=== PATIENT | male | born 1975 | race Caucasian/White ===

== ENCOUNTER 2017-05-15 23:32 | Emergency (ER) | payer SELFPAY ==
[2017-05-15] MEDS ORDERED: Proparacaine 0.5% Ophth Soln 15 ML Bottle EYELF ONE (23:38)
[2017-05-15] MEDS ORDERED: Diphtheria,Pertussis(Acell),Tetanus Vaccine 0.5 ML Syringe IM ONE (23:58)
--- NOTE | 2017-05-16 00:04 | EDM.PDOC ---
ED HPI GENERAL MEDICAL PROBLEM - General Chief Complaint: Eye Problems Stated Complaint: PT HAS PARTICLE IN LT EYE Time Seen by Provider: 05/15/17 23:58 - History of Present Illness INITIAL COMMENTS - FREE TEXT/NARRATIVE: HISTORY AND PHYSICAL: History of present illness: Patient's 5-year-old male presents with a concern of foreign body to his left eye that occurred approximately 3 hours prior to arrival he thinks this is a metallic foreign body denies other trauma or concern patient denies up-to-date tetanus Review of systems: As per history of present illness and below otherwise all systems reviewed and negative. Past medical history: As per history of present illness and as reviewed below otherwise noncontributory. Surgical history: As per history of present illness and as reviewed below otherwise noncontributory. Social history: No reported history of drug or alcohol abuse. Family history: As per history of present illness and as reviewed below otherwise noncontributory. Physical exam: HEENT: Atraumatic, normocephalic, pupils reactive, negative for conjunctival pallor or scleral icterus, mucous membranes moist, throat clear, neck supple, nontender, trachea midline. Patient has a foreign body noted at the 11 o'clock position in his left eye anterior chamber scleral is no evidence of penetration he was anesthetized with topical anesthetic and the foreign body was removed with a Q-tip there is a suggestion appearance of the might be a small residual component discussed this with patient. Lungs: Clear to auscultation, breath sounds equal bilaterally, chest nontender. Heart: S1S2, regular, negative for clicks, rubs, or JVD. Abdomen: Soft, nondistended, nontender. Negative for masses or hepatosplenomegaly. Negative for costovertebral tenderness. Pelvis: Stable nontender. Genitourinary: Deferred. Rectal: Deferred. Extremities: Atraumatic, negative for cords or calf pain. Neurovascular unremarkable. Neuro: Awake, alert, oriented. Cranial nerves II through XII unremarkable. Cerebellum unremarkable. Motor and sensory unremarkable throughout. Exam nonfocal. Diagnostics: None Therapeutics: Patient was anesthetized with topical anesthesia and foreign body was removed with Q-tip from left eye Impression: #1 corneal foreign body status post removal with possible residual foreign body Definitive disposition and diagnosis as appropriate pending reevaluation and review of above. left eye Pain Score (Numeric/FACES): 7 - Related Data Allergies Allergy/AdvReac Type Severity Reaction Status Date / Time amoxicillin Allergy Hives Verified 05/15/17 23:44 Home Meds: Home Meds . [No Known Home Meds] 05/15/17 [History] Past Medical History - Past Health History Medical/Surgical History: Denies Medical/Surgical History Social & Family History - Family History Family Medical History: Noncontributory - Tobacco Use Smoking Status *Q: Never Smoker - Recreational Drug Use Recreational Drug Use: No ED ROS GENERAL - Review of Systems Review Of Systems: ROS reveals no pertinent complaints other than HPI. ED EXAM GENERAL W FULL EYE - Physical Exam Exam: See Below (See dictation) Course - Vital Signs Text/Narrative:: Case was discussed with ophthalmology will see patient in the morning in the clinic antibiotic ophthalmic drops will be prescribed patient's return as needed as discussed Last Recorded V/S: Last Vital Signs Temp 36.6 C 05/15/17 23:32 Pulse 57 L 05/15/17 23:32 Resp 18 05/15/17 23:32 BP 129/71 05/15/17 23:32 Pulse Ox 96 05/15/17 23:32 - Orders/Labs/Meds Orders: Active Orders 24 hr Category Date Time Status Vaccines to be Administered [RC] PER UNIT ROUTINE Care 05/15/17 23:58 Active Meds: Medications Discontinued Medications Generic Name Dose Route Start Last Admin Trade Name Freq PRN Reason Stop Dose Admin Diphtheria/Tetanus/Acell Pertussis 0.5 ml 05/15/17 23:58 Adacel IM 05/15/17 23:59 .ONCE ONE Proparacaine HCl 1 ml 05/15/17 23:38 05/15/17 23:52 Proparacaine 0.5% Ophth Soln EYELF 05/15/17 23:39 1 ml ONETIME ONE Administration Departure - Departure Time of Disposition: 00:03 Disposition: Home, Self-Care 01 Condition: Good Clinical Impression: Corneal foreign body - Discharge Information Referrals: PCP,None [Primary Care Provider] - Additional Instructions: The following information is given to patients seen in the emergency department who are being discharged to home. This information is to outline your options for follow-up care. We provide all patients seen in our emergency department with a follow-up referral. The need for follow-up, as well as the timing and circumstances, are variable depending upon the specifics of your emergency department visit. If you don't have a primary care physician on staff, we will provide you with a referral. We always advise you to contact your personal physician following an emergency department visit to inform them of the circumstance of the visit and for follow-up with them and/or the need for any referrals to a consulting specialist. The emergency department will also refer you to a specialist when appropriate. This referral assures that you have the opportunity for followup care with a specialist. All of these measure are taken in an effort to provide you with optimal care, which includes your followup. Under all circumstances we always encourage you to contact your private physician who remains a resource for coordinating your care. When calling for followup care, please make the office aware that this follow-up is from your recent emergency room visit. If for any reason you are refused follow-up, please contact the [facility] emergency department at and asked to speak to the emergency department charge nurs Tobrex ophthalmic drops as prescribed follow-up with ophthalmology in a.m. call for appointment return as needed as discussed[] - My Orders Last 24 Hours: My Active Orders 05/15/17 23:58 Vaccines to be Administered [RC] PER UNIT ROUTINE - Assessment/Plan Last 24 Hours: My Active Orders 05/15/17 23:58 Vaccines to be Administered [RC] PER UNIT ROUTINE
== END 2017-05-16 00:21 | disposition home or self-care (01) ==
LOC: MW.ED 23:32
DX: T15.02XA Foreign body in cornea, left eye, initial encounter (principal); Z88.1 Allergy status to other antibiotic agents; Z23 Encounter for immunization
CPT/HCPCS: 65220; 90471; 90715; 99283; 99283-25